=== PATIENT | male | born 1985 | race Caucasian/White ===

== ENCOUNTER 2017-04-21 12:50 | Emergency (ER) | payer MEDICAID ==
[2017-04-21] MEDS ORDERED: KETOROLAC TROMETHAMINE 60 MG/2 ML VIAL IM ONE ×2 (13:27→13:32)
[2017-04-21] MEDS ORDERED: LIDOCAINE HCL 20 ML UDC MM ONE (13:32)
--- NOTE | 2017-04-21 13:41 | ERNOTE ---
ENT HPI Date of Service: 04/21/17 Presenting Symptoms: dental pain Time Seen by Provider: 04/21/17 13:27 Source: patient Exam Limitations: no limitations - Immun/Allergies/Home Medications Immunizations: IMMUNIZATION HX Immunizations Up to Date Yes History of Influenza Vaccine No Hx Pneumococcal Vaccination No Allergies/Adverse Reactions: Allergies Allergy/AdvReac Type Severity Reaction Status Date / Time benztropine mesylate Allergy Intermediate hallucinate Verified 04/21/17 12:56 [From Cogentin] Penicillins Allergy Intermediate rash Verified 04/21/17 12:56 propoxyphene napsylate Allergy Intermediate Verified 04/21/17 12:56 [From Darvocet-N 100] tramadol Allergy Intermediate Hives Verified 04/21/17 12:56 codeine [Codeine] Allergy rash Verified 04/21/17 12:56 Home Medications: HOME MEDICATIONS Clindamycin HCl [Cleocin HCl] 300 mg PO Q6H #40 capsule 04/05/17 [Last Taken Unknown] HYDROcodone/ACETAMINOPHEN [Hydrocodon-Acetaminophen 5-325] 1 each PO Q4H [Last Taken Unknown] Ibuprofen 600 mg PO Q6H #40 tablet 04/21/17 [Last Taken Unknown] Lidocaine HCl [Lidocaine HCl Viscous 2%] 5 ml MM Q1H #1 btl 04/21/17 [Last Taken Unknown] - History of Present Illness Narrative: Pt is a 31 year old patient who presents following full dental extraction of his upper teeth due to multiple abscesses. He is having extreme pain, rating it a 10/10. He was discharged with Vicodin, however they have not been effective at reducing pain. He states that he has not been smoking, occasionally taking ibuprofen, and has been taking the antibiotic as prescribed. Denies fevers, chills, or difficultly breathing or swallowing. Date (Duration): 04/20/17 Time (Timing): 15:00 Severity: Present: severe ENT Location: Present: dental - upper Prearrival Treatment: Present: over the counter meds, prescription meds Modifying Factors - Improves: Reports: heat, cold Modifying Factors - Worsens: Reports: nothing Associated Symptoms - ENT: Reports: poor solid intake, facial pain/swelling, jaw swelling, headache. Denies: fever, trauma Prior Treament: Reports: treated by physician, currently on antibiotics Review of Systems - Review of Systems Constitutional: Present: fatigue. Absent: fever, chills, weakness EYE: Absent: eye pain, vision changes ENT: Present: other - severe pain of upper gums which extends up into maxiofacial/jaw area. Absent: throat swelling Respiratory: Absent: shortness of breath, cough Cardiology: Absent: chest pain, palpitations Neurological: Present: anxiety - Patient's Past Medical History Patient History - Medical: No pertinent hx, Other Patient History - Cardiac/Respiratory: No pertinent hx Patient History - Cancer: No Hx of Cancer Patient History - Surgical Procedures: Ear Tubes, ENT Patient History - Other: None - Social History Living Situations: home Abuse History: No History of abuse Psych History: No pertinent hx, Current tx/ever been on anti-depressants or anti -anxiety meds Alcohol Use: none Drug Use: none - Immunizations Immunizations Up to Date: Yes Hx Pneumococcal Vaccination: No History of Influenza Vaccine: No Physical Exam - Physical Exam General Appearance: Present: wd/wn, alert, moderate distress, anxious, crying Head Exam: Present: normal inspection Ears, Nose, Throat: Present: normal except -, other - multiple sutures presents, edema and erythemaous appearing upper gums-no exudate or evidence of dry sock present Neck: Present: nontender. Absent: lymphadenopathy (R), lymphadenopathy (L) Respiratory: Present: normal breath sounds Cardiovascular/Chest: Present: regular rate, rhythm Neurological Exam: Present: alert, oriented, normal mood/affect, no motor/ sensory deficits Lymphatic Exam: Present: no adenopathy ED Progress - Vital Signs Patient's Vital Signs:: I have reviewed the patient's vital signs. Vital Signs: Vital Signs 04/21/17 04/21/17 12:51 12:56 Temperature 36.5 C 36.5 C Pulse Rate 104 H 104 H Respiratory 12 12 Rate Blood Pressure 127/73 127/73 O2 Sat by Pulse 100 100 Oximetry - Progress/Reassessment Chief Complaint: Dental Problem Progress:: Improved Progress Note-Subjective: 04/21/17 14:34 discussed that pt will not be pain free and will continue to have pain for the next few days. He was instructed to follow up with dental clinic in [place] if he feels he needs stronger pain medication, until then use lidocaine, ibuprofen, and norco as prescribed. He should continue to monitor for s/s of infection including increased swelling, redness, or if he develops fevers. Departure Clinical Impression: Pain, dental - Departure Disposition: Home self-care Condition: Good Instructions: Dental Extraction, Care After, [id number] Additional Instructions: May use ice to alleviate pain Eat and drink luke warm temperature food/liquids to decreased irritation Please follow up with dental clinic for further issues with pain or any other concerns. If develop fever, chills, or increased swelling please return to ER As discussed, take Ibuprofen Q6hr as prescribed to assist with pain control Continue to take [place] as prescribed Use Lidocaine on gums as directed Continue to take ALL of antibiotics as prescribed DO NOT smoke Prescriptions: Ibuprofen 600 mg PO Q6H #40 tablet Lidocaine HCl [Lidocaine HCl Viscous 2%] 5 ml MM Q1H #1 btl
[2017-04-21 15:07] VITALS: BP 125/71
== END 2017-04-21 14:37 | disposition home or self-care (01) ==
LOC: ER 12:50
DX: K08.89 Other specified disorders of teeth and supporting structures